=== PATIENT | female | born 1950 | race Caucasian/White ===

== ENCOUNTER 2017-12-12 14:47 | Observation (INO) | payer MEDICARE, OTHER ==
[~2017-12-12] VITALS: Ht 165.1 cm; Wt 98.0 kg
--- NOTE | 2017-12-12 15:01 | NUR ---
PT TO ROOM 13 W/STEADY GAIT.
--- NOTE | 2017-12-12 15:10 | NUR ---
PT STATES THAT SHE BGAN HAVING STOMACH ISSUES ON 12/07/17. STATES SHE HAS BEEN SEEN BY A PRIVATE DR THAT HAS GIVEN ANTIEMTIC, AND ANITIDIARHHEA MEDICINE THAT IS NOT WORKING. STATES LAST TIME VOMITING WAS AT 1330, AND 5 DIARRHEA TODAY. PT STATES SLIGHT PAIN ON RUQ ON PALPATION, PT DENIES ANY C/P, SOB, OR WEAKNESS. PT IS AOX4 .
[2017-12-12 15:19] LABS: HEMATOCRIT 47.5 % (37.0-47.0); HEMOGLOBIN 15.8 g/dl (12.0-16.0); IMMATURE GRANULOCYTES 0.7 % (0.0-1.0); MEAN CELL VOLUME 91.7 fL CALC (80.0-100.0); MEAN CORPUSCULAR HGB 30.5 pG CALC (26.0-32.0); MEAN CORPUSCULAR HGB CONC 33.3 g/L CALC (32.0-36.0); NEUT# 6.92 thou/uL (2.00-7.15); RED BLOOD COUNT 5.18 mill/uL (4.20-5.60); RED CELL DISTRI WIDTH 13.3 % (11.5-15.5)
[2017-12-12 15:29] LABS: ALBUMIN 4.3 g/dL (3.2-5.0); BILIRUBIN, TOTAL 0.5 mg/dL (0.0-1.4); CREATININE 1.2 mg/dL (0.5-1.0); POTASSIUM 4.2 mmol/l (3.5-5.1); TOTAL PROTEIN 7.6 g/dL (6.3-8.2)
[2017-12-12 15:49] LABS: URINE BLOOD DIPSTICK NEGATIVE (NEGATIVE); URINE COLOR YELLOW; URINE GLUCOSE - DIPSTICK NEGATIVE (NEGATIVE); URINE KETONE TRACE mg/dL (NEGATIVE); URINE LEUK ESTERASE NEGATIVE (NEGATIVE); URINE NITRITE - DIPSTICK NEGATIVE (Negative); URINE PH 5.5 (4.5-8.0); URINE PROTEIN - DIPSTICK NEGATIVE (NEG-TRACE); URINE SPECIFIC GRAVITY >=1.030; URINE UROBILINOGEN - DIPSTICK 0.2 E.U./dL (0.2)
[2017-12-12 15:51] LABS: URINE BILIRUBIN - DIPSTICK NEGATIVE (NEGATIVE); URINE CLARITY CLEAR
--- NOTE | 2017-12-12 16:10 | NUR ---
PT AMBULATED TO RESTROOM AND BACK, RECONNECTED TO IV. IV PATENT WITH NO PAIN. PT STATES MINOR NAUSEA
--- NOTE | 2017-12-12 16:51 | NUR ---
REPORT CALLED TO [facility]- REPORT GIVEN TO SAMEERA CASTILLO- ACCPETED PT
[2017-12-12] MEDS ORDERED: METFORMIN500 M1 PO (16:53)
[2017-12-12] MEDS ORDERED: LISINOPRIL10 MG PO (16:54)
[2017-12-12] MEDS ORDERED: METOPROL TAR25 MG PO (16:54)
[2017-12-12] MEDS ORDERED: AMLODIPINE5 MG PO (16:54)
[2017-12-12] MEDS ORDERED: LOVASTATIN20 M1 PO (16:55)
[2017-12-12] MEDS ORDERED: CITALOPRAM10 MG PO (16:55)
[2017-12-12] MEDS ORDERED: LODINE400 MG PO (16:55)
[2017-12-12] MEDS ORDERED: JARDIANCE10 MG PO (16:56)
[2017-12-12] MEDS ORDERED: VITAMIN D1000 UNIT PO (16:56)
[2017-12-12] MEDS ORDERED: BYDUREON2 MG IM (16:58)
[2017-12-12 17:05] VITALS: BP 153/75
--- NOTE | 2017-12-12 17:07 | NUR ---
PT ARRIVED FROM ER VIA STRETCHER ACCOMPANIED BY STAFF, IV SITE IS FREE FROM REDNESS OR EDEMA. FAMILY IN THE ROOM.
--- NOTE | 2017-12-12 17:11 | NUR ---
Admission Note Report Given to: SAMEERA CASTILLO Transported by: Wheelchair X Stretcher Transported with: X Nurse Transporter X Patent IV O2 [employer] TRANSPORTED WITH OUT INCIDENT
--- NOTE | 2017-12-12 18:30 | NUR ---
ASSESSMENT IS COMPLETED: IV SITE IS FREE FROM REDNESS OR EDEMA. ABD IS SOFT WITH HYPERACTIVE BS HR IS REG, PULSES ARE STRONG X4, CONTINUE TO OSBERVE AND MONITOR.
[2017-12-12 19:00] VITALS: BP 161/73
--- NOTE | 2017-12-12 20:00 | NUR ---
BEDSIDE REPORT RECEIVED FROM JONATHAN BRASHER. PT RESTING IN BED SEMI FOWLERS; ALERT AND ORIENTED. DENIES PAIN, HAS SOME ABDOMINAL TENDERNESS. RESPIRATIONS EVEN AND UNLABORED ON ROOM AIR. DENIES NAUSEA. IV FLUIDS INFUSING WITHOUT DIFFICULTY; IV SITE APPEARS HEALTHY. PLAN OF CARE DISCUSSED. PT ENCOURAGED TO VERBALIZE CONCERNS. STATES UNDERSTANDING. SAFETY MEASURES IN PLACE. CALL LIGHT WITHIN REACH.
--- NOTE | 2017-12-13 | NUR ---
PT ASLEEP AT THIS TIME WITH NO SIGNS OF DISTRESS. RESPIRATIONS EVEN AND UNLABORED ON ROOM AIR. VS STABLE. INDEPENDENT IN ROOM; USES CALL LIGHT PRN FOR ASSISTANCE. SAFETY MEASURES IN PLACE. CALL LIGHT WITHIN REACH.
--- NOTE | 2017-12-13 01:58 | NUR ---
ZOFRAN GIVEN FOR C/O NAUSEA; PT DENIES ANY EMESIS SINCE ADMISSION TO THE HOSPITAL. CONTINUES TO HAVE MODERATE WATERY BOWEL MOVMENTS APPROXIMATELY EVERY 2 HOURS THAT ARE GREEN AND YELLOW IN COLOR. DENIES PAIN, BUT DOES HAVE ABDOMINAL TENDERNESS.
--- NOTE | 2017-12-13 04:06 | NUR ---
PT ASLEEP AT THIS TIME WITH NO SIGNS OF DISTRESS. RESPIRATIONS EVEN AND UNLABORED ON ROOM AIR. NO ACUTE CHANGES IN CONDITION THROUGHOUT THE NIGHT. SAFETY MEASURES IN PLACE. CALL LIGHT WITHIN REACH.
[2017-12-13 04:25] VITALS: BP 129/72
[2017-12-13 05:05] LABS: MEAN CORPUSCULAR HGB 30.5 pG CALC (26.0-32.0); MEAN CORPUSCULAR HGB CONC 32.8 g/L CALC (32.0-36.0); RED BLOOD COUNT 4.43 mill/uL (4.20-5.60); RED CELL DISTRI WIDTH 13.5 % (11.5-15.5)
[2017-12-13 05:06] LABS: HEMATOCRIT 41.2 % (37.0-47.0); HEMOGLOBIN 13.5 g/dl (12.0-16.0)
[2017-12-13 05:17] LABS: ANION GAP 17 (6-22 (CALC)); BUN 29 mg/dL (8-23); BUN/CREATININE RATIO 28 (12-20 (CALC)); CARBON DIOXIDE 21 mmol/l (22-30); CHLORIDE 112 mmol/l (95-108); GFR 55 ML/MIN (>=60 (CALC)); GFR FOR AFR.AMER. > 60 ML/MIN (>=60 (CALC)); MAGNESIUM 1.6 mg/dL (1.6-2.3); POTASSIUM 3.9 mmol/l (3.5-5.1); SODIUM 146 mmol/l (137-146)
--- NOTE | 2017-12-13 07:00 | NUR ---
SHIFT CHANGE REPORT FROM AMELIA ARENAS AWAKE ALERT AND ORIENTED RESTING IN BED, REQUESTING ORAL INTAKE AT THIS TIME AND ADVISED WILL ADDRESS REQUEST WITH MD STATUS ID NPO, DENIES PAIN, IVF INFUSING, CALL PARKER IN REACH.
[2017-12-13 09:15] LABS: CHOLESTEROL HDL RATIO 3.5 (<4.4 (CALC))
[2017-12-13 09:21] VITALS: BP 150/80
--- NOTE | 2017-12-13 12:00 | NUR ---
SITTING UP IN CHAIR, C/O PAIN TO IV SITE IN LAC AND REQUEST TO REMOVE CATHETER, REQUEST HONORED, ALL NEEDS ADDRESSED, CALL PARKER IN REACH.
[2017-12-13 15:06] VITALS: BP 137/79
--- NOTE | 2017-12-13 16:00 | NUR ---
RELAXING IN CHAIR, ALL NEEDS MET/ADDRESSED, CALL PARKER IN REACH.
[2017-12-13 16:43] LABS: C. DIFFICILE TOXIN A&B NEGATIVE (NEGATIVE)
[2017-12-13 18:49] VITALS: BP 141/54
--- NOTE | 2017-12-13 20:00 | NUR ---
BEDSIDE REPORT RECEIVED FROM NISHANT SALGADO. PT RESTING IN BED WITH EYES CLOSED; AWAKENS TO VERBAL STIMULI. DENIES PAIN CURRENTLY; DENIES NAUSEA. RESPIRATIONS EVEN AND UNLABORED. CONTINUES TO HAVE DIARRHEA. COMPLIANT WITH CLEAR LIQUID DIET; IV FLUIDS INFUSING WITHOUT DIFFICUTLY. PLAN OF CARE REVIEWED. PT ENCOURAGED TO VERBALIZE CONCERNS. STATES UNDERSTANDING. SAFETY MEASURES IN PLACE. CALL LIGHT WITHIN REACH.
--- NOTE | 2017-12-14 00:11 | NUR ---
PT ASLEEP AT THIS TIME WITH NO SIGNS OF DISTRESS. RESPIRATIONS EVEN AND UNLABORED ON ROOM AIR. IV FLUIDS INFUSING WITHOUT DIFFICULTY; IV SITE APPEARS HEALTHY. INDEPENENT IN ROOM. USES CALL LIGHT PRN FOR ASSISTANCE. SAFETY MEASURES IN PLACE. CALL LIGHT WITHIN REACH.
--- NOTE | 2017-12-14 04:11 | NUR ---
PT SITTING UP IN BED WATCHING TV. DENIES PAIN CURRENTLY. ABT INFUSING AT THIS TIME. PT VERBALIZES TAHT SHE WANTS TO EAT A REGULAR DIET. NO C/O NAUSEA THIS SHIFT, HOWEVER, BOWEL MOVEMENTS CONTINUE. NO ACUTE CHANGES IN CONDITION THROUGHOUT THE NIGHT. SAFETY MEASURES IN PLACE. CALL LIGHT WITHIN REACH.
[2017-12-14 06:15] LABS: ANION GAP 15 (6-22 (CALC)); BUN 13 mg/dL (8-23); BUN/CREATININE RATIO 16 (12-20 (CALC)); CARBON DIOXIDE 20 mmol/l (22-30); CHLORIDE 112 mmol/l (95-108); CREATININE 0.8 mg/dL (0.5-1.0); GFR > 60 ML/MIN (>=60 (CALC)); GFR FOR AFR.AMER. > 60 ML/MIN (>=60 (CALC)); MAGNESIUM 1.4 mg/dL (1.6-2.3); POTASSIUM 3.7 mmol/l (3.5-5.1); SODIUM 143 mmol/l (137-146)
[2017-12-14 06:22] LABS: HEMATOCRIT 41.1 % (37.0-47.0); HEMOGLOBIN 12.6 g/dl (12.0-16.0); IMMATURE GRANULOCYTES 1.6 % (0.0-1.0); MEAN CORPUSCULAR HGB 30.4 pG CALC (26.0-32.0); MEAN CORPUSCULAR HGB CONC 30.7 g/L CALC (32.0-36.0); NEUT# 3.58 thou/uL (2.00-7.15); RED BLOOD COUNT 4.14 mill/uL (4.20-5.60); RED CELL DISTRI WIDTH 13.5 % (11.5-15.5)
[2017-12-14 06:27] LABS: MEAN CELL VOLUME 99.3 fL CALC (80.0-100.0)
--- NOTE | 2017-12-14 07:00 | NUR ---
BEDSIDE REPORT RECEIVED BY EL. PT IS SLEEPING WITH NO S/S OF DISTRESS NOTED. CALL LIGHT IN REACH.
[2017-12-14 07:31] VITALS: BP 128/68
--- NOTE | 2017-12-14 08:00 | NUR ---
ASSESSMENT DONE. RESPS EVEN AND UNLABORED. PT DENIES PAIN AT THIS TIME. NS 125ML/HR INFUSING WELL. SAFETY PRECAUTIONS REINFORCED AND CALL LIGHT IN REACH.
[2017-12-14 09:22] VITALS: BP 128/68
[2017-12-14] MEDS ORDERED: ZITHROMAX500 MG PO (10:09)
[2017-12-14] MEDS ORDERED: FLORASTOR250 M1 PO (10:09)
[2017-12-14 11:00] VITALS: BP 157/88
--- NOTE | 2017-12-14 12:00 | NUR ---
PT IS SITTING IN RECLINER WITH NO S/S OF DISTRESS NOTED. PT DENIES PAIN AT THIS TIME. CALL LIGHT IN REACH. IN ROOM.
--- NOTE | 2017-12-14 14:40 | NUR ---
Discharge instructions given. Patient verbalizes understanding of same. Discharged in stable condition via Ambulatory to Home with spouse. All belongings sent with pt.
== END 2017-12-14 14:40 | disposition home or self-care (01) ==
LOC: ED 14:47 → ED-I 15:59 → ED 16:21 → MS2 16:22
PROVIDERS: Family Medicine; Nurse Practitioner Family; ADMIT Internal Medicine; ATTEND Internal Medicine
DX: A04.5 Campylobacter enteritis (principal); N17.9 Acute kidney failure, unspecified; E86.0 Dehydration; I10 Essential (primary) hypertension; E78.5 Hyperlipidemia, unspecified; E11.40 Type 2 diabetes mellitus with diabetic neuropathy, unspecified; Z87.891 Personal history of nicotine dependence; Z79.84 Long term (current) use of oral hypoglycemic drugs; Z85.3 Personal history of malignant neoplasm of breast

== ENCOUNTER 2020-06-15 09:01 | Day surgery (SDC) | payer MEDICARE, OTHER ==
[~2020-06-15 09:01] MED LIST: BYDUREON B2 MG/0.85 SC; BYDUREON2 MG IM; CITALOPRAM10 MG PO; FLORASTOR250 M1 PO; HYDROCHLOROT25 MG PO; JARDIANCE10 MG PO; LISINOPRIL10 MG PO; LODINE400 MG PO; LOVASTATIN20 M1 PO; METFORMIN500 M1 PO; METOPROL TAR25 MG PO; NORVASC5 M1 PO; OMEPRAZOLE DR40 MG PO; VITAMIN D1000 UNIT PO; ZITHROMAX500 MG PO
[2020-06-15 12:49] VITALS: BP 129/70
== END 2020-06-15 12:25 | disposition home or self-care (01) ==
LOC: ENDO 09:01 → ORM 10:45 → ENDO 11:15
PROVIDERS: ATTEND Surgery
PROC: 0DB78ZX Excision of Stomach, Pylorus, Via Natural or Artificial Opening Endoscopic, Diagnostic (ICD-10-PCS; principal; 2020-06-15)
DX: K29.70 Gastritis, unspecified, without bleeding (principal); K44.9 Diaphragmatic hernia without obstruction or gangrene; Z20.828 Contact with and (suspected) exposure to other viral communicable diseases; Z79.899 Other long term (current) drug therapy

== ENCOUNTER 2022-03-11 13:25 | Emergency (ER) | payer MEDICARE, OTHER ==
[~2022-03-11] VITALS: Ht 166.4 cm; Wt 97.7 kg
[2022-03-11] VITALS (7 sets, daily range): BP systolic 120–164; BP diastolic 57–70
[2022-03-11 14:05] LABS: HEMATOCRIT 39.7 % (37.0-47.0); IMMATURE GRANULOCYTES 0.4 % (0.0-5.0); MEAN CORPUSCULAR HGB 29.7 pG CALC (26.0-32.0); MEAN CORPUSCULAR HGB CONC 32.7 g/dL CAL (32.0-36.0); NEUT# 2.47 thou/uL (2.00-7.15); RED BLOOD COUNT 4.37 mill/uL (4.20-5.60); RED CELL DISTRI WIDTH 13.1 % (11.5-15.5)
[2022-03-11 14:16] LABS: ALBUMIN 4.3 g/dL (3.2-5.0); ALKALINE PHOSPHATASE 85 u/l (38-126); ANION GAP 15 (6-22 (CALC)); BILIRUBIN, TOTAL 0.6 mg/dL (0.0-1.4); BUN 29 mg/dL (8-23); BUN/CREATININE RATIO 19 (12-20 (CALC)); CARBON DIOXIDE 23 mmol/l (22-30); CHLORIDE 106 mmol/l (95-108); CREATININE 1.5 mg/dL (0.5-1.0); GFR FOR AFR.AMER. 41 ML/MIN (>=60 (CALC)); GFR OTHER RACES 34 ML/MIN (>=60 (CALC)); POTASSIUM 3.6 mmol/l (3.5-5.1); SODIUM 140 mmol/l (137-146); TOTAL PROTEIN 7.6 g/dL (6.3-8.2)
[2022-03-11 14:19] LABS: MEAN CELL VOLUME 90.8 fL CALC (80.0-100.0)
[2022-03-11 14:20] LABS: SGOT/AST 32 u/l (9-36)
== END 2022-03-11 17:40 | disposition home or self-care (01) ==
LOC: ED 13:25
PROVIDERS: Family Medicine
DX: U07.1 COVID-19 (principal); I10 Essential (primary) hypertension; E11.9 Type 2 diabetes mellitus without complications; R53.1 Weakness; R53.83 Other fatigue

== ENCOUNTER 2023-02-13 15:40 | Observation (INO) | payer MEDICARE, OTHER ==
[~2023-02-13] VITALS: Ht 166.4 cm; Wt 100.2 kg
[2023-02-13] VITALS (16 sets, daily range): BP systolic 124–174; BP diastolic 47–73
--- NOTE | 2023-02-13 15:45 | NUR ---
GILLIAN TO ROOM 15
[2023-02-13 16:10] LABS: BASO% 0.6 % (0-3); EOS% 2.8 % (0-8); HEMATOCRIT 40.8 % (37.0-47.0); HEMOGLOBIN 13.1 g/dl (12.0-16.0); IMMATURE GRANULOCYTES 0.3 % (0.0-5.0); LYMPH% 33.5 % (15-41); MEAN CELL VOLUME 91.7 fL CALC (80.0-100.0); MEAN CORPUSCULAR HGB 29.4 pG CALC (26.0-32.0); MEAN CORPUSCULAR HGB CONC 32.1 g/dL CAL (32.0-36.0); MONO% 8.7 % (2-13); NEUT# 3.49 thou/uL (2.00-7.15); NEUT% 54.1 % (42-76); RED BLOOD COUNT 4.45 mill/uL (4.20-5.60); RED CELL DISTRI WIDTH 13.1 % (11.5-15.5)
[2023-02-13 16:28] LABS: ALBUMIN 4.2 g/dL (3.2-5.0); BILIRUBIN, TOTAL 0.4 mg/dL (0.02-1.3); CREATININE 1.5 mg/dL (0.5-1.0)
--- NOTE | 2023-02-13 16:31 | NUR ---
PATIENT RESTING IN BED, FAMILY AT BEDSIDE, EDUCATED ON CONT WAIT TIME
--- NOTE | 2023-02-13 17:30 | NUR ---
EDUCATED ON CONT WAIT TIME, PATIENT RESTING IN BED
--- NOTE | 2023-02-13 18:00 | NUR ---
ASSISTED PATIENT TO RESTROOM
--- NOTE | 2023-02-13 18:31 | NUR ---
MD AT BEDSIDE TO REVIEW PLAN OF CARE, MED LIST TO BE REVIEWED AND RECONCILED.
--- NOTE | 2023-02-13 18:42 | NUR ---
DINNER TRAY SERVED, VERIFIED WITH MD REGARDING DIET ORDER
[2023-02-13] MEDS ORDERED: ATENOLOL50 MG PO (18:46)
[2023-02-13] MEDS ORDERED: PROTONIX40 M2 PO (18:47)
--- NOTE | 2023-02-13 20:29 | NUR ---
PT TAKEN TO BATHROOM AND WALKED BACK TO ROOM HOOKED BACK UP TO MONITOR NO OTHER COMPLAINTS AT THIS TIME. PT IS RESTING IN ROOM
--- NOTE | 2023-02-13 20:58 | NUR ---
VISITOR ASKED TO LEAVE BY SECURITY AND NURSING PROCESS PUMPER, PATIENT C/O ROOM BEING TOO HOT, GLASS DOOR OPENED, BATHROOM DOORS OPENED, FAN ON, PATIENT CONTINUES TO COMPLAIN EVEN THOUGH MANY MEASURES HAVE BEEN TAKEN TO HELP COOL PATIENT, NURSING PROCESS PUMPER SPOKE WITH PATIENT ABOUT SWITCHING ROOMS IF PATIENT IS NOT MORE COMFORTABLE WITH COOLING MEASURES BEING TAKEN.
--- NOTE | 2023-02-13 21:02 | NUR ---
PREVIOUS NOTED ENTERED IN ERROR ON WRONG CHART
--- NOTE | 2023-02-13 21:35 | NUR ---
ED DOES NOT CARRY MEDS THAT ARE ORDERED ON SEP. VSS, NAD.
--- NOTE | 2023-02-13 23:00 | NUR ---
REPORT CALLED TO RN IN ICU - PT TRANSFERRED IN WC - NOT ICU STATUS. OSCARS, MANINDER.
--- NOTE | 2023-02-13 23:35 | NUR ---
PATIENT TO ICU ROOM 2 FROM ED BY WHEELCHAIR, AMBULATORY WITHOUT ASSITANCE TO THE BATHROOM, PATIENT HAS NO C/O PAIN OR DISCOMFORT, NO S/S OF DISTRESS NOTED, RESPIRATIONS EVEN AND UNLABORED ON ROOM AIR, MEDICATED WITH HOME MEDS PER MD ORDER, PO FLUIDS GIVEN, LIGHTS DIMMED FOR PATIENT COMFORT.
[2023-02-14] VITALS (14 sets, daily range): BP systolic 117–162; BP diastolic 35–79
--- NOTE | 2023-02-14 00:08 | NUR ---
PATIENT RESTING QUIETLY WITH EYES CLOSED, RESPIRATIONS EVEN AND UNLABORED ON ROOM AIR
--- NOTE | 2023-02-14 02:02 | NUR ---
PATIENT RESTING QUIETLY WITH EYES CLOSED, RESPIRATIONS EVEN AND UNLABORED ON ROOM AIR.
--- NOTE | 2023-02-14 04:14 | NUR ---
PATIENT UP TOT HE BATHROOM, ABLE TO AMBULATE INDEPENDENTLY, NO C/O PAIN OR DISCOMFORT, NO SOB.
[2023-02-14 05:52] LABS: BASO% 0.6 % (0-3); HEMOGLOBIN 12.1 g/dl (12.0-16.0); IMMATURE GRANULOCYTES 0.2 % (0.0-5.0); MEAN CORPUSCULAR HGB 29.3 pG CALC (26.0-32.0); MEAN CORPUSCULAR HGB CONC 31.8 g/dL CAL (32.0-36.0); MONO% 8.7 % (2-13); NEUT# 3.24 thou/uL (2.00-7.15); NEUT% 52.5 % (42-76); RED BLOOD COUNT 4.13 mill/uL (4.20-5.60); RED CELL DISTRI WIDTH 13.4 % (11.5-15.5)
[2023-02-14 06:18] LABS: ALBUMIN 3.8 g/dL (3.2-5.0); CREATININE 1.4 mg/dL (0.5-1.0); POTASSIUM 4.1 mmol/l (3.5-5.1); TOTAL PROTEIN 6.5 g/dL (6.3-8.2)
[2023-02-14 06:34] LABS: BILIRUBIN, TOTAL 0.6 mg/dL (0.02-1.3)
--- NOTE | 2023-02-14 08:00 | NUR ---
REPORT RECIEVED FROM NIGHT RN. PT IS AWAKE, ALERT, AND ORIENTED. LUNG SOUND CLEAR; SLIGHT CRACKLES HEARD IN LLL. PT DENIES ANY SOB OR COUGH. PT IS ON RA. HEART RHYTHM REGULAR; PT IS NSR. BOWEL SOUNDS ACTIVE. PT DENIES ANY ABDOMINAL TENDERNESS. PULSES STRONG ALL EXTREMETIES. SKIN WARM/DRY/INTACT. NO EDEMA NOTED. PT DENIES ANY PAIN. IV ACCESS 20G LAC. CALL LIGHT AND BELONGINGS WITHIN REACH. VSS.
--- NOTE | 2023-02-14 08:15 | NUR ---
DR. STONE AT BEDSIDE TO ASSESS PATIENT. ORDERS RECIEVED TO ORDER ECHO AND HOLD LISINOPRIL AND DIURETIC THIS MORNING.
--- NOTE | 2023-02-14 09:15 | NUR ---
FISH FARM MANAGER AT BEDSIDE TO PERFORM ORDERED ECHO.
--- NOTE | 2023-02-14 10:00 | NUR ---
PT ASSISTED OUT OF BED TO USE RESTROOM. PT AMBULATES INDEPENDENTLY. PT ASSISTED BACK INTO BED. PT DENIED ANY NEEDS AT THIS TIME. CALL LIGHT AND BELONGINGS WITHIN REACH. VSS.
--- NOTE | 2023-02-14 12:00 | NUR ---
PT SITTING UP IN BED TALKING ON THE PHONE. LUNCH TRAY BROUGHT IN. PT DENIES ANY ADDITIONAL NEEDS AT THIS TIME. CALL LIGHT AND BELONGINGS WITHIN REACH. VSS AT THIS TIME.
[2023-02-14] MEDS ORDERED: ADLT ASA LOW81 MG PO (13:05)
--- NOTE | 2023-02-14 13:45 | NUR ---
DISCHARGE ORDERS RECIEVED. PT'S AT BEDSIDE. DISCHARGE TEACHING COMPLETED; ALL QUESTIONS ANSWERED. PT AWARE OF APPT WITH DR. STONE TOMORROW AT 1530. IV REMOVED. ALL PT BELONGINGS SENT HOME WITH PT. PT ESCORTED TO MAIN ENTRANCE BY WHEELCHAIR IN GOOD CONDITION.
== END 2023-02-14 13:45 | disposition home or self-care (01) ==
LOC: ED 15:40 → ICU 18:46
PROVIDERS: Family Medicine; Internal Medicine; ADMIT Internal Medicine; ATTEND Internal Medicine
DX: R07.9 Chest pain, unspecified (principal); N63.10 Unspecified lump in the right breast, unspecified quadrant; R91.1 Solitary pulmonary nodule; I10 Essential (primary) hypertension; E11.40 Type 2 diabetes mellitus with diabetic neuropathy, unspecified; E78.5 Hyperlipidemia, unspecified; Z86.711 Personal history of pulmonary embolism; Z86.718 Personal history of other venous thrombosis and embolism; Z79.84 Long term (current) use of oral hypoglycemic drugs; Z85.3 Personal history of malignant neoplasm of breast; Z92.3 Personal history of irradiation; Z87.891 Personal history of nicotine dependence
CPT/HCPCS: Q9967